=== PATIENT | female | born 1985 | race Caucasian/White ===

== ENCOUNTER 2022-07-19 08:43 | Outpatient (CLI) | payer OTHER ==
[2022-07-19] MEDS ORDERED: Iopamidol 370 76% 100 ML VIAL ONE (09:09)
== END 2022-07-19 08:44 | disposition home or self-care (01) ==
LOC: CSHCT 08:43
PROVIDERS: ATTEND Psychiatry & Neurology Neurology
DX: G40.909 Epilepsy, unspecified, not intractable, without status epilepticus (principal); E04.9 Nontoxic goiter, unspecified; J32.9 Chronic sinusitis, unspecified
CPT/HCPCS: 70498